=== PATIENT | male | born 1955 | race Two or more races ===

== ENCOUNTER 2019-06-27 15:29 | Inpatient (IN) | payer OTHER ==
[~2019-06-27] VITALS: Ht 182.9 cm; Wt 90.7 kg
[2019-07-24] MEDS ORDERED: LIPITOR20 MG PO (12:11)
[2019-07-24] MEDS ORDERED: PLAVIX75 MG PO (12:11)
[2019-07-24] MEDS ORDERED: COREG CR20 MG PO (12:11)
[2019-07-24] MEDS ORDERED: TRADJENTA5 MG PO (12:11)
[2019-07-24] MEDS ORDERED: LOSARTAN POTASS25 MG PO (12:12)
[2019-07-24] MEDS ORDERED: HUMALOG100 UNIT/2 (12:12)
[2019-07-24] MEDS ORDERED: LANTUS SOL100 UNIT/1 (12:13)
[2019-07-24] MEDS ORDERED: VITAMIN D400 UNI2 PO (12:13)
== END 2019-08-05 09:40 | disposition home or self-care (01) | DRG 330 ==
LOC: SURG 07-31 06:15 → O/R 07-31 06:15 → SURG 07-31 07:30 → SURH 08-01 18:24
PROVIDERS: ADMIT Surgery
PROC: 07BC4ZX Excision of Pelvis Lymphatic, Percutaneous Endoscopic Approach, Diagnostic (ICD-10-PCS; 2019-07-31)
PROC: 0D1B4Z4 Bypass Ileum to Cutaneous, Percutaneous Endoscopic Approach (ICD-10-PCS; 2019-07-31)
PROC: 0DNW4ZZ Release Peritoneum, Percutaneous Endoscopic Approach (ICD-10-PCS; 2019-07-31)
PROC: 4A1 Measurement and Monitoring, Physiological Systems, Monitoring (ICD-10-PCS; 2019-07-31)
PROC: 0DTF4ZZ Resection of Right Large Intestine, Percutaneous Endoscopic Approach (ICD-10-PCS; principal; 2019-07-31 07:30)
DX: D12.0 Benign neoplasm of cecum (principal); I13.0 Hypertensive heart and chronic kidney disease with heart failure and stage 1 through stage 4 chronic kidney disease, or unspecified chronic kidney disease; N17.9 Acute kidney failure, unspecified; K66.0 Peritoneal adhesions (postprocedural) (postinfection); E11.22 Type 2 diabetes mellitus with diabetic chronic kidney disease; N18.9 Chronic kidney disease, unspecified; Z95.810 Presence of automatic (implantable) cardiac defibrillator; I50.9 Heart failure, unspecified; Z95.1 Presence of aortocoronary bypass graft; G47.33 Obstructive sleep apnea (adult) (pediatric)

== ENCOUNTER 2020-10-29 06:27 | Day surgery (SDC) | payer OTHER ==
[~2020-10-29 06:27] MED LIST: COREG CR20 MG PO; HUMALOG100 UNIT/2; LANTUS SOL100 UNIT/1; LIPITOR20 MG PO; LOSARTAN POTASS25 MG PO; PLAVIX75 MG PO; TRADJENTA5 MG PO; VITAMIN D400 UNI2 PO
== END 2020-10-29 10:25 | disposition home or self-care (01) ==
LOC: AMB-ENDOS 06:27
PROVIDERS: ATTEND Surgery
DX: D12.4 Benign neoplasm of descending colon (principal); Z20.822 Contact with and (suspected) exposure to COVID-19

== ENCOUNTER 2023-09-04 06:44 | Day surgery (SDC) | payer OTHER ==
[2023-09-04] MEDS ORDERED: DIPHENHYDRAMINE HCL 50 MG/ML VIAL 1ML IV ONE (11:00)
[2023-09-04] MEDS ORDERED: fentaNYL CITRATE 50 MCG/ML AMPUL IV PUSH ONE (11:00)
[2023-09-04] MEDS ORDERED: MIDAZOLAM HCL 2 MG/2 ML VIAL IV ONE (11:00)
== END 2023-09-04 12:50 | disposition home or self-care (01) ==
LOC: AMB-ENDOS 06:44
PROVIDERS: ATTEND Surgery
DX: D37.4 Neoplasm of uncertain behavior of colon (principal)